=== PATIENT | female | born 1985 | race Caucasian/White ===

== ENCOUNTER → 2016-07-19 | Outpatient (CLI) | payer BC ==
[~2016-07-19] MED LIST: AMOXICILLIN 25250 MG PO; BENADRYL25 M2 PO; CLEOCIN HC150 MG/CAP PO; IBU600 MG PO; IBU800 M1 PO; LEVOXYL0.125 MG PO; PERCOCET 325 MG1 TA2 PO; PRENATAL; VALTREX 50500 MG/TAB PO
== END ==
LOC: COL.RAD 10:22
DX: O26.891 Other specified pregnancy related conditions, first trimester (principal); O34.81 Maternal care for other abnormalities of pelvic organs, first trimester; N83.11 Corpus luteum cyst of right ovary; R10.2 Pelvic and perineal pain; Z3A.01 Less than 8 weeks gestation of pregnancy

== ENCOUNTER 2017-02-07 14:51 | Inpatient (IN) | payer BC ==
[~2017-02-07] VITALS: Ht 162.6 cm; Wt 59.1 kg
[~2017-02-07 14:51] MED LIST changes: -BENADRYL25 M2 PO; -IBU800 M1 PO; -LEVOXYL0.125 MG PO; -PERCOCET 325 MG1 TA2 PO; -PRENATAL; -VALTREX 50500 MG/TAB PO
[2017-03-08] VITALS (20 sets, daily range): BP systolic 110–133; BP diastolic 59–87; PULSE 55–68; TEMP 79.9–98.4
[2017-03-08 07:27] LABS: BASO % 0.2 % (0.0-2.0); EOS # 0.1 (0.0-0.7); EOS % 2.5 % (0-4.0); GRAN # 2.8 (1.4-6.5); GRAN % 56.7 % (42.2-75.2); HEMOGLOBIN 12.5 g/dl (12.5-16.0); LYMPH # 1.5 (1.2-3.4); LYMPH % 30.9 % (20.0-51.0); MEAN CELL VOLUME 95 fl (80.0-100.0); MEAN CORPUSCULAR HEMOGLOBIN 33 pg (27.0-31.0); MEAN CORPUSCULAR HGB CONC 34 g/dl (33.0-37.0); MEAN PLATELET VOLUME 10.5 fl (7.4-10.4); MONO # 0.5 (0.1-0.6); MONO % 9.3 % (1.7-9.3); PLATELET COUNT 159 K/mm3 (130-400); RED BLOOD COUNT 3.83 M/mm3 (4.10-5.30); REDCELL DISTRIBUTION WIDTH-CV 12.7 % (11.5-14.5); WHITE BLOOD COUNT 4.9 K/mm3 (4.8-10.8)
[2017-03-08 07:30] LABS: HEMATOCRIT 36.3 % (37.0-47.0)
[2017-03-08] MEDS ORDERED: LEVOXYL0.125 MG PO (07:37)
[2017-03-08] MEDS ORDERED: BENADRYL25 M2 PO (07:38)
[2017-03-08] MEDS ORDERED: VALTREX 50500 MG/TAB PO (07:39)
[2017-03-08] MEDS ORDERED: PRENATAL (07:40)
[2017-03-09 03:16] VITALS: BP 108/70; PULSE 61; TEMP 98.2
[2017-03-09 06:56] VITALS: BP 110/77; PULSE 80; TEMP 97.8
[2017-03-09 16:28] VITALS: BP 109/62; PULSE 68; TEMP 97.8
[2017-03-09 20:30] VITALS: BP 106/67; PULSE 68; TEMP 97.9
[2017-03-10] MEDS ORDERED: IBU800 M1 PO (08:48)
[2017-03-10] MEDS ORDERED: PERCOCET 325 MG1 TA2 PO (08:48)
[2017-03-10 08:59] VITALS: BP 110/69; PULSE 78; TEMP 98.3
[2017-03-10 16:19] VITALS: BP 105/57; PULSE 63; TEMP 97.9
[2017-03-10 20:50] VITALS: BP 100/60; PULSE 66; TEMP 97.9
[2017-03-11 07:58] VITALS: BP 112/71; PULSE 71; TEMP 98.3
== END 2017-03-11 13:30 | disposition home or self-care (01) | DRG 766 ==
LOC: OB 03-08 05:11 → EDSTATUS 03-13 08:24 → LDRO 03-13 14:50
PROVIDERS: Obstetrics & Gynecology
PROC: 10D00Z1 Extraction of Products of Conception, Low, Open Approach (ICD-10-PCS; principal; 2017-03-08)
PROC: 0UN90ZZ Release Uterus, Open Approach (ICD-10-PCS; 2017-03-08)
DX: O34.211 Maternal care for low transverse scar from previous cesarean delivery (principal); N85.8 Other specified noninflammatory disorders of uterus; O99.284 Endocrine, nutritional and metabolic diseases complicating childbirth; E03.9 Hypothyroidism, unspecified; O99.89 Other specified diseases and conditions complicating pregnancy, childbirth and the puerperium; N73.6 Female pelvic peritoneal adhesions (postinfective); Z3A.39 39 weeks gestation of pregnancy; Z37.0 Single live birth
CPT/HCPCS: J0690; J1200; J1885; J2175; J2270; J2370; J2405; J2590; J3010; J7120

== ENCOUNTER → 2017-06-14 | Outpatient (CLI) | payer BC ==
[~2017-06-14] MED LIST changes: +BENADRYL25 M2 PO; +IBU800 M1 PO; +LEVOXYL0.125 MG PO; +PERCOCET 325 MG1 TA2 PO; +PRENATAL; +VALTREX 50500 MG/TAB PO
[2017-06-14 11:03] LABS: BASO % 0.4 % (0.0-2.0); EOS # 0.1 (0.0-0.7); EOS % 4.3 % (0-4.0); GRAN # 1.3 (1.4-6.5); GRAN % 49.3 % (42.2-75.2); HEMATOCRIT 39.1 % (37.0-47.0); HEMOGLOBIN 13.2 g/dl (12.5-16.0); LYMPH # 0.9 (1.2-3.4); LYMPH % 36.2 % (20.0-51.0); MEAN CELL VOLUME 91 fl (80.0-100.0); MEAN CORPUSCULAR HEMOGLOBIN 31 pg (27.0-31.0); MEAN CORPUSCULAR HGB CONC 34 g/dl (33.0-37.0); MONO # 0.3 (0.1-0.6); MONO % 9.8 % (1.7-9.3); PLATELET COUNT 192 K/mm3 (130-400); RED BLOOD COUNT 4.31 M/mm3 (4.10-5.30); WHITE BLOOD COUNT 2.5 K/mm3 (4.8-10.8)
== END ==
LOC: COL.LAB 10:25
PROVIDERS: Family Medicine
DX: R10.13 Epigastric pain (principal); Z86.19 Personal history of other infectious and parasitic diseases; Z80.0 Family history of malignant neoplasm of digestive organs